=== PATIENT | female | born 1980 ===

== ENCOUNTER 2021-02-13 08:00 | Outpatient (CLI) | payer OTHER | END 2021-02-13 08:45 | disposition home or self-care (01) | LOC: PRENATAL 08:00 | PROVIDERS: ATTEND Obstetrics & Gynecology Maternal & Fetal Medicine | DX: Z36.89 Encounter for other specified antenatal screening (principal); O36.80X1 Pregnancy with inconclusive fetal viability, fetus 1; O09.511 Supervision of elderly primigravida, first trimester; Z3A.12 12 weeks gestation of pregnancy ==

== ENCOUNTER 2021-04-09 07:56 | Outpatient (CLI) | payer OTHER | END 2021-04-09 09:12 | disposition home or self-care (01) | LOC: PRENATAL 07:56 | PROVIDERS: ATTEND Obstetrics & Gynecology Maternal & Fetal Medicine | DX: O35.0XX0 Maternal care for (suspected) central nervous system malformation in fetus, not applicable or unspecified (principal); O35.3XX0 Maternal care for (suspected) damage to fetus from viral disease in mother, not applicable or unspecified ==

== ENCOUNTER 2021-07-12 14:32 | Outpatient (CLI) | payer OTHER ==
[2021-07-12] MEDS ORDERED: PRENATAL + DHA1 EAC1 PO (14:49)
[2021-07-12] MEDS ORDERED: NASAL MIST126 ML (14:50)
== END 2021-07-13 11:18 | disposition home or self-care (01) ==
LOC: OBS/DEL 14:32
PROVIDERS: ATTEND Obstetrics & Gynecology
DX: O26.893 Other specified pregnancy related conditions, third trimester (principal); Z3A.33 33 weeks gestation of pregnancy; N93.0 Postcoital and contact bleeding; Z20.822 Contact with and (suspected) exposure to COVID-19